=== PATIENT | female | born 1965 | race Caucasian/White ===

== ENCOUNTER 2017-09-05 10:05 | Emergency (ER) | payer SELFPAY | END 2017-09-05 11:17 | disposition home or self-care (01) | LOC: D.ER 10:05 | DX: T37.8X5A Adverse effect of other specified systemic anti-infectives and antiparasitics, initial encounter (principal); Y92.029 Unspecified place in mobile home as the place of occurrence of the external cause; Z87.2 Personal history of diseases of the skin and subcutaneous tissue ==

== ENCOUNTER 2018-05-29 15:45 | Emergency (ER) | payer SELFPAY ==
[~2018-05-29] VITALS: Ht 162.6 cm; Wt 100.9 kg
[2018-05-29 15:57] VITALS: Ht 162.6 cm; Wt 100.9 kg
[2018-05-29] MEDS ORDERED: ROBAXIN500 MG PO (15:58)
[2018-05-29] MEDS ORDERED: IBUPROFEN800 MG PO (15:58)
[2018-05-29 16:21] LABS: BASOPHILS 0.9 % (0-2); HEMATOCRIT 41.3 % (36.0-48.0); IMMATURE GRANULOCYTES 0.1 % (0-5); LYMPHOCYTES 37.4 % (15-50); MCH 30.6 pg (26.0-34.0); MCHC 33.9 g/dL (31.0-37.0); MCV 90.2 fL (80.0-100.0); MEAN PLATELET VOLUME 9.3 fL (7.4-10.4); MONOCYTES 5.4 % (2-11); NEUTROPHILS 53.2 % (40-80); PLATELET COUNT 323 10x3/uL (130-400); RBC 4.58 10x6/uL (4.00-5.40); RDW 13.3 % (11.5-14.5); WBC 7.9 10x3/uL (4.8-10.8)
[2018-05-29 16:34] LABS: ALBUMIN 3.9 g/dL (3.4-5.0); ALKALINE PHOSPHATASE 84 U/L (46-116); ALT (SGPT) 83 U/L (10-68); BILIRUBIN - TOTAL 0.52 mg/dL (0.2-1.3); CALC OSMOLALITY 273 mosm/kg (275-300); CALCIUM 8.9 mg/dL (8.5-10.1); CARBON DIOXIDE 28.5 mmol/L (21.0-32.0); CHLORIDE - SERUM 101 mmol/L (98-107); CREATININE - SERUM 0.8 mg/dL (0.6-1.3); GLUCOSE 107 mg/dL (74-106); POTASSIUM - SERUM 3.7 mmol/L (3.5-5.1); PROTEIN - SERUM 7.9 g/dL (6.4-8.2); SODIUM 138 mmol/L (136-145); UREA NITROGEN 8 mg/dL (7-18); eGFR NON AFRICAN AMERICAN 80 mL/min (90-120)
[2018-05-29 17:05] LABS: APPEARANCE CLEAR (CLEAR); BILIRUBIN NEGATIVE (NEGATIVE); COLOR YELLOW (YELLOW); GLUCOSE NEGATIVE (NEGATIVE); KETONE NEGATIVE (NEGATIVE); NITRITE NEGATIVE (NEGATIVE); PROTEIN NEGATIVE (NEGATIVE); UROBILINOGEN NORMAL (NORMAL)
== END 2018-05-29 19:00 | disposition left against medical advice (07) ==
LOC: D.ER 15:45
PROVIDERS: Family Medicine
DX: R10.9 Unspecified abdominal pain (principal)